=== PATIENT | male | born 1980 | race African-American/Black ===

== ENCOUNTER 2025-03-11 14:57 | Outpatient (CLI) | payer OTHER ==
[2025-03-11 15:27] LABS: Anion Gap 16 mmol/L (10-20); BUN (Urea Nitrogen) 8 mg/dL (8.9-20.6); Calc. Creatinine Clearance 0 mL/min (70-130); Calcium 8.9 mg/dL (7.8-10.44); Carbon Dioxide 25 mmol/L (22-29); Chloride 106 mmol/L (98-107); Glucose 93 mg/dL (70-105); Potassium 4.7 mmol/L (3.5-5.1); Sodium 142 mmol/L (136-145)
[2025-03-11 16:04] LABS: Anisocytosis SLIGHT = 6-15 cells (100X) (0-5/hpf); Hematocrit 51.2 % (42.0-52.0); Hemoglobin 15.5 g/dL (14.0-18.0); MDiff Complete? YES; Mean Corpuscular Hemoglobin 27.9 pg (27.0-31.0); Mean Corpuscular Volume 92.2 fl (78.0-98.0); Platelet Adequacy Comment Appears Adequate; Platelet Count 271 10x3/uL (130-400); Red Blood Cell (RBC) Count 5.56 mill/uL (4.70-6.10); White Blood Cell (WBC) Count 4.9 10x3/uL (4.8-10.8)
== END 2025-03-11 14:58 | disposition home or self-care (01) ==
LOC: MADLAB 14:57
PROVIDERS: ATTEND Nurse Practitioner Primary Care
DX: I10 Essential (primary) hypertension (principal); I69.398 Other sequelae of cerebral infarction; E78.5 Hyperlipidemia, unspecified
CPT/HCPCS: 80048; 85025